=== PATIENT | male | born 1950 | race Caucasian/White ===

== ENCOUNTER 2017-01-27 15:31 | Emergency (ER) | payer MEDICARE, OTHER ==
[~2017-01-27] VITALS: Ht 175.3 cm; Wt 81.6 kg
[~2017-01-27 15:31] MED LIST: ALLO100T PO; CITA40TA22 PO; CLON0.1T PO; GABA-534 PO; LAMO150T33 PO; LISI-603 PO; MULT-59 PO; NALT50TA PO; NAPR500T PO
--- NOTE | 2017-01-27 15:37 | NUR ---
PT AMBULATORY TO ER BED C/O WORSENING SOB SINCE SEPTEMBER. APPEARS ANXIOUS STATING HE FEELS CHEST PRESSURE. WAS DIAGNIOSED W/ PLEURISY AND BRONCHITIS. PT STATES NOT FEELING ANY BETTER INSTEAD GETTING WORSE.GOWNED AND PLACED ON MONITOR. AWAITING MD ZARAGOZA.
--- NOTE | 2017-01-27 15:42 | NUR ---
DR MURRAY AT BEDSIDE FOR EVAL.
[2017-01-27] MEDS ORDERED: predniSONE 20 MG TABLET ONE (15:51)
--- NOTE | 2017-01-27 15:52 | NUR ---
IV LINE STARTED BLOOD DRAWN AND SENT TO LAB.
[2017-01-27 15:58] LABS: BASOPHILS % (AUTO) 0.4 % (0.0-2.0); EOSINOPHILS % (AUTO) 0.5 % (0.0-6.0); HEMATOCRIT 37 % (39-51); HEMOGLOBIN 12.5 g/dL (13.5-17.5); LYMPHOCYTES # (AUTO) 1.3 /CMM (0.8-4.8); MEAN CORPUSCULAR HEMOGLOBIN 27 PG (26.0-33.0); MEAN CORPUSCULAR HGB CONC 33 g/dl (31.0-36.0); MEAN CORPUSCULAR VOLUME 82 fL (80-96); MONOCYTES # (AUTO) 0.9 /CMM (0.1-1.30); MONOCYTES % (AUTO) 9.4 % (2.0-12.0); NEUTROPHILS # (AUTO) 7.6 /CMM (1.8-8.9); NEUTROPHILS % (AUTO) 76.7 % (43.0-81.0); PLATELET COUNT (AUTO) 379 /CMM (150-450); RDW COEFFICIENT OF VARIATION 13.4 (11.5-15.0); RED BLOOD CELL COUNT(AUTO) 4.58 MIL/uL (4.5-6.0); WHITE BLOOD COUNT (AUTO) 9.8 K/uL (4.3-11.0)
[2017-01-27] MEDS ORDERED: predniSONE 20 MG TABLET PO ONE (16:00)
[2017-01-27] MEDS ORDERED: ALBUTEROL FS 2.5 MG/3 ML VIAL.NEB NEB ONE (16:00)
[2017-01-27] MEDS ORDERED: IPRATROPIUM NEB FS 0.5 MG/2.5 ML AMPUL.NEB NEB ONE (16:00)
[2017-01-27 16:05] LABS: CALCIUM, SERUM 9.2 mg/dL (8.5-10.1); CREATININE 1.7 mg/dL (0.6-1.3)
[2017-01-27] MEDS ORDERED: ALBUTEROL FS 2.5 MG/3 ML VIAL.NEB ONE (16:17)
[2017-01-27] MEDS ORDERED: IPRATROPIUM NEB FS 0.5 MG/2.5 ML AMPUL.NEB ONE (16:17)
--- NOTE | 2017-01-27 16:26 | NUR ---
RT AT BEDSIDE FOR BREATHING TREATMENT.
--- NOTE | 2017-01-27 17:12 | NUR ---
Patient discharged to home in stable condition. Written and verbal after care instructions given. Patient verbalizes understanding of instruction.IV removed. Catheter intact and site benign. Pressure and 4x4 applied to site. No bleeding noted.
[2017-01-27 17:13] VITALS: BP 142/94
== END 2017-01-27 17:15 | disposition home or self-care (01) ==
LOC: ER 15:32
DX: R07.89 Other chest pain (principal); J20.9 Acute bronchitis, unspecified; R05 Cough; I12.9 Hypertensive chronic kidney disease with stage 1 through stage 4 chronic kidney disease, or unspecified chronic kidney disease; N18.9 Chronic kidney disease, unspecified; F20.9 Schizophrenia, unspecified; I10 Essential (primary) hypertension; K21.9 Gastro-esophageal reflux disease without esophagitis
CPT/HCPCS: 36415; 71010; 80048; 85025; 93005; 94640; 99285; A4606; J7512; Z7610

== ENCOUNTER 2024-01-27 17:22 | Emergency (ER) | payer MEDICARE, OTHER ==
[~2024-01-27] VITALS: Ht 175.3 cm; Wt 79.4 kg
[~2024-01-27 17:22] MED LIST changes: -LAMO150T33 PO; +LAMO150T6 PO; -LISI-603 PO; +LISI20TA30 PO; +NAPR-1164 PO; -NAPR500T PO
[2024-01-27] MEDS ORDERED: CYCL5TAB PO (20:14)
[2024-01-27] MEDS ORDERED: KETO10TA2 PO (20:14)
[2024-01-27 20:25] VITALS: BP 131/74; TEMP 98.3; O2SAT 98
== END 2024-01-27 20:26 | disposition home or self-care (01) ==
LOC: ER 17:33
DX: R07.9 Chest pain, unspecified (principal); M54.2 Cervicalgia; I10 Essential (primary) hypertension; F41.9 Anxiety disorder, unspecified; K21.9 Gastro-esophageal reflux disease without esophagitis; F20.9 Schizophrenia, unspecified; Z79.899 Other long term (current) drug therapy; V89.2XXA Person injured in unspecified motor-vehicle accident, traffic, initial encounter; Y93.89 Activity, other specified; Y92.89 Other specified places as the place of occurrence of the external cause; Y99.8 Other external cause status
CPT/HCPCS: 70450-TC; 71250-TC; 72125-TC